=== PATIENT | female | born 1930 | race African-American/Black ===

== ENCOUNTER 2016-09-21 09:26 | Emergency (ER) | payer MEDICARE, OTHER ==
[~2016-09-21] VITALS: Ht 160 cm; Wt 55.0 kg
[2016-09-21 09:30] VITALS: BP 118/56; PULSE 90; RESP 16; TEMP 98.8; O2SAT 99
--- NOTE | 2016-09-21 09:52 | PD ---
HPI Chief Complaint: Cold / Flu Symptoms Time Seen by Provider: 09:39 Travel History International Travel<30 days: No Contact w/Intl Traveler<30days: No Traveled to known affect area: No History of Present Illness HPI 86-year-old female presents with cough and sneezing since Tuesday. She states a couple people and dietary also have similar complaints. She denies any difficulty breathing, fever or other concerns. Quality is stuffy nose. Severity is mild. PFSH Past Medical History Arthritis: No Asthma: No Autoimmune Disease: No Heart Rhythm Problems: No High Cholesterol: Yes Chest Pain: No Congestive Heart Failure: No COPD: No Cerebrovascular Accident: No Diabetes: No GERD: No Glaucoma: No Headaches: Yes Hepatitis: No Hiatal Hernia: No Hypertension: Yes Kidney Stones: No Myocardial Infarction: No Renal Failure: No Seizures: No Sleep Apnea: No Thyroid Disease: Yes (HYPOTHYROID) Ulcer: No Past Surgical History Abdominal Surgery: No AICD: No Cardiac Surgery: No Ear Surgery: No Endocrine Surgery: No Eye Surgery: No Genitourinary Surgery: No Gynecologic Surgery: Yes (BIOPSY L BREAST) Oral Surgery: No Pacemaker: No Thoracic Surgery: No Social History Alcohol Use: No Tobacco Use: No Substance Use: No Allergies-Medications (Allergen,Severity, Reaction): Coded Allergies: No Known Allergies (Verified , 09/21/16) Reported Meds & Prescriptions Reported Meds & Active Scripts Active Reported Atorvastatin (Atorvastatin Calcium) 10 Mg Tab 10 Mg PO HS Levothyroxine (Levothyroxine Sodium) 88 Mcg Tab 88 Mcg PO DAILY Lisinopril 10 Mg Tab 10 Mg PO DAILY Review of Systems Except as stated in HPI: all other systems reviewed are Neg Physical Exam Narrative General: No apparent distress, well appearing ENT: Posterior oropharyngx clear without exudate or erythema, external auditory canals are normal. Bilateral TM clear Neck: Neck is supple, no meningeal signs, trachea is midline Cardiovascular: Regular rate and rhythm Lungs: No increased respiratory effort noted, CTA bilaterally Extremities: No edema Neuro: Awake, motor and sensation grossly intact, normal speech Data Data Last Documented VS Vital Signs Date Time Temp Pulse Resp B/P Pulse Ox O2 Delivery O2 Flow Rate FiO2 09/21/16 09:30 98.8 90 16 118/56 99 Orders Influenzae A/B Antigen (09/21/16 09:40) Chest, Pa & Lat (09/21/16 ) MDM Medical Decision Making Medical Screen Exam Complete: Yes Emergency Medical Condition: Yes Medical Record Reviewed: Yes (past history confirmed) Interpretation(s) flu and cxr no acute Differential Diagnosis Pneumonia, URI, allergies Narrative Course Will check chest x-ray and influenza and reevaluate ed workup no acute, Patient denies any new complaints and states that they are feeling better. Patient happy with care, all questions answered. Patient knows that follow up is incumbent on them and to return to the emergency room immediately if new or worsening symptoms develop. Patient given strict return precautions, vitals reviewed and are normal, agrees to further workup as an outpatient. Diagnosis Primary Impression: Upper respiratory infection Qualified Code: J06.9 - Upper respiratory tract infection, unspecified type Patient Instructions: General Instructions Additional Instructions: return as needed, follow with primary this week, supportive care Med/Other Pt SpecificInfo: No Change to Meds Disposition: 01 DISCHARGE HOME Condition: Stable Kristie Cordova MD Sep 21, 2016 09:52
[2016-09-21] MEDS ORDERED: ATOR10TA15 PO (09:59)
[2016-09-21] MEDS ORDERED: LEVO88TA2 PO (09:59)
[2016-09-21] MEDS ORDERED: LISI10TA3 PO (09:59)
--- NOTE | 2016-09-21 10:25 | RADRPT ---
EXAM DATE/TIME: 09/21/2016 10:19 [facility] COMPARISON: No previous studies available for comparison. INDICATIONS : Cough, short of breath, and cold symptoms for 3 days. MEDICAL HISTORY : None. SURGICAL HISTORY : None. ENCOUNTER: Initial ACUITY: 3 days PAIN SCORE: 0/10 LOCATION: Bilateral chest FINDINGS: PA and lateral views of the chest demonstrates hyperinflation which can be seen with CO PD. No infiltrates are seen. Heart is normal in size. The mediastinal contours are unremarkable. O sseous structures are intact. CONCLUSION: Hyperinflation which can be seen with COPD. No acute cardiopulmonary disease an d no evidence for an infiltrate. Bowen Garay MD on September 21, 2016 at 10:24 Board Certified Radiologist. This report was verified electronically.
== END 2016-09-21 11:55 | disposition home or self-care (01) ==
LOC: NEPC 09:26
DX: J06.9 Acute upper respiratory infection, unspecified (principal); E78.00 Pure hypercholesterolemia, unspecified; I10 Essential (primary) hypertension
CPT/HCPCS: 71020; 87804; 99283

== ENCOUNTER 2018-03-08 13:19 | Observation (INO) ==
[2018-03-08 15:29] LABS: Baso % (Auto) 0.4 % (0.0-2.0); Eos # (Auto) 0.1 th/mm3 (0.0-0.4); Eos % (Auto) 2.3 % (0.0-4.0); Hematocrit 31.2 % (35.0-46.0); Hemoglobin 10.5 gm/dL (11.6-15.3); Lymph # (Auto) 1.6 th/mm3 (1.0-4.8); Lymph % (Auto) 26.5 % (9.0-44.0); Mean Corpuscular HGB Conc 33.6 % (32.0-36.0); Mean Corpuscular Volume 89.4 fL (80.0-100.0); Mean Platelet Volume 9.4 fL (7.0-11.0); Mono # (Auto) 0.6 th/mm3 (0.0-0.9); Neut # (Auto) 3.6 th/mm3 (1.8-7.7); Neut % (Auto) 60.8 % (16.0-70.0); Platelet Count 171 th/mm3 (150-450); Red Blood Count 3.49 mil/mm3 (4.00-5.30); Red Cell Distribution Width 13.3 % (11.6-17.2); White Blood Count 5.9 th/mm3 (4.0-11.0)
[2018-03-08 15:53] LABS: Anion Gap 6 meq/L (5-15); Blood Urea Nitrogen 25 mg/dL (7-18); Carbon Dioxide 28.6 meq/L (21.0-32.0); Chloride 104 meq/L (98-107); Glomerular Filtration Rate 37 mL/min (>89); Glucose,Random 126 mg/dL (74-106); Potassium 4.8 meq/L (3.5-5.1); Sodium 139 meq/L (136-145)
[2018-03-08] MEDS ORDERED: Sodium Chlor 0.9% Inj 500 ML IV.SIG ONE (17:25)
--- NOTE | 2018-03-08 17:42 | XR ---
EXAM DATE: 03/08/2018 5:35 PM EDT AGE/SEX: 88 years / Female INDICATIONS: Contusion. Patient fell today. CLINICAL DATA: This is the patient's initial encounter. Patient reports that signs and symptoms have been present for 1 day and indicates a pain score of 5/10. MEDICAL/SURGICAL HISTORY: None. None. COMPARISON: No prior exams available for comparison. FINDINGS: 3 views of the pelvis and right hip reveal osteoarthritis. No femoral head flattening or subchondral view of formation. No fracture or dislocation. 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 Venous calcifications overlie the pelvis. Soft tissues are otherwise unremarkable . CONCLUSION: Mild osteoarthritis. No acute abnormality. Electronically signed by: Asael Sharif MD 03/08/2018 5:41 PM EDT
--- NOTE | 2018-03-08 18:22 | ED ---
HPI General Chief Complaint: Syncope Stated Complaint: Dizziness/Poss WC Time Seen by Provider: 03/08/18 17:00 Source: patient Mode of arrival: ambulatory Limitations: no limitations History of Present Illness HPI narrative: 88-year-old female that presents to the ED for evaluation of syncope. Patient had a syncopal episode this morning while working. 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 Per patient he became really hot and she started feeling dizzy and like she was going to pass out. She did lose conscious for a couple seconds and landed on her right hip. She has been able to walk. She does have some bruising in the area. She is able to move the legs fully. Denies any urinary or bowel movement issues. No chest pain or shortness of breath before or after the event. Denies any headache. No blurry vision or double vision. Per patient now she feels fine other than some bruising to her right hip and she is able to ambulate. She denies any other medical issues and high cholesterol, high blood pressure and thyroid disease. Denies any history of heart disease or CVA on herself. Denies ever having a syncopal episode in the past. No other medical issues. No urinary or bowel movement issues. She does have a history of chronic kidney disease per patient. Related Data Home Medications Medication Instructions Recorded Confirmed atorvastatin 10 mg PO DAILY 03/08/18 03/08/18 fluticasone 1 spray INTRANASAL DAILY 03/08/18 03/08/18 levothyroxine 88 mcg PO DAILY 03/08/18 03/08/18 lisinopril-hydrochlorothiazide 1 tab PO DAILY 03/08/18 03/08/18 Allergies Allergy/AdvReac Type Severity Reaction Status Date / Time No Known Allergies Allergy Unverified 03/08/18 14:04 Review of Systems ROS: all other systems reviewed are negative [facility] Medical History Medical History Chronic kidney disease (Acute) Hyperlipemia (Acute) Hypertension (Acute) Hypothyroid (Acute) Surgical History Surgical History H/O removal of cyst (Acute) Hx of tonsillectomy (Acute) Social History Social History Substance History: No History of Abuse Second Hand Smoke Exposure: No Smoking Status: Never smoker How Often Do You Have a Drink Containing Alcohol: Never Recent Travel in [facility] within the Last 8 Weeks: No Recent Out of Country Travel within the Last 8 Weeks: No Immunization History Tetanus Immunization: Unsure Hx Influenza Vaccine This Season: Yes Exam Narrative Exam Narrative: GENERAL: Well appearing SKIN: Focused skin assessment warm/dry. HEAD: Atraumatic. Normocephalic. EYES: Pupils equal and round. No scleral icterus. No injection or drainage. ENT: No nasal bleeding or discharge. Mucous membranes pink and moist. Tongue is midline. No uvula deviation. NECK: Trachea midline. No JVD. CARDIOVASCULAR: Regular rate and rhythm. No murmur appreciated. RESPIRATORY: No accessory muscle use. Clear to auscultation. Breath sounds equal bilaterally. GASTROINTESTINAL: Abdomen soft, non-tender, nondistended. Hepatic and splenic margins not palpable. MUSCULOSKELETAL: No obvious deformities. No clubbing. No cyanosis. No edema. Full range of motion of the upper and lower extremities bilaterally. 2+ pulses bilaterally NEUROLOGICAL: Awake and alert. No obvious cranial nerve deficits. Motor grossly within normal limits. Normal speech. PSYCHIATRIC: Appropriate mood and affect; insight and judgment normal. Course Initial Documented Vital Signs Temperature 98.2 F 03/08/18 13:51 Pulse Rate 80 03/08/18 13:51 Respiratory Rate 18 03/08/18 13:51 Blood Pressure 167/69 H 03/08/18 13:51 Pulse Oximetry 99 03/08/18 13:51 Last Documented Vital Signs Temperature 98.2 F 03/08/18 13:51 Pulse Rate 80 03/08/18 13:51 Respiratory Rate 18 03/08/18 13:51 Blood Pressure 167/69 H 03/08/18 13:51 Pulse Oximetry 99 03/08/18 13:51 Medical Decision Making MDM Narrative Medical decision making narrative: 88-year-old female that presents to the ED for evaluation of syncope. Patient was properly examined and found to have signs and symptoms consistent appears to be syncope. Unclear etiology at this time. Does appear to be more benign than cardiac patient unfortunately is 88 years old and does have comorbidities that could increase her chances of more significant causes of syncope. Patient did have positive orthostatic vitals. Labs and imaging were done and were essentially unremarkable other than for what appears to be recommendation at this time is for admission for further evaluation. Case discussed with Dr Dunham who agrees to admission to his service. Differential Diagnosis Differential Diagnosis: Syncope versus dehydration versus heat stroke versus ACS Medical Records Medical records reviewed: Yes I reviewed the patient's medical records. Lab Data Lab results reviewed: Yes I reviewed the patient's lab results. Lab results narrative: Troponin and CK-MB negative. Result diagrams: 03/08/18 15:00 03/08/18 15:00 Lab Results 03/08/18 03/08/18 Range/Units 15:00 15:00 WBC 5.9 (4.0-11.0) th/mm3 RBC 3.49 L (4.00-5.30) mil/mm3 Hgb 10.5 L (11.6-15.3) gm/dL Hct 31.2 L (35.0-46.0) % MCV 89.4 (80.0-100.0) fL MCH 30.0 (27.0-34.0) pg MCHC 33.6 (32.0-36.0) % RDW 13.3 (11.6-17.2) % Plt Count 171 (150-450) th/mm3 MPV 9.4 (7.0-11.0) fL Neut % (Auto) 60.8 (16.0-70.0) % Lymph % (Auto) 26.5 (9.0-44.0) % [place] % (Auto) 10.0 H (0.0-8.0) % Eos % (Auto) 2.3 (0.0-4.0) % Baso % (Auto) 0.4 (0.0-2.0) % Neut # (Auto) 3.6 (1.8-7.7) th/mm3 Lymph # (Auto) 1.6 (1.0-4.8) th/mm3 [place] # (Auto) 0.6 (0.0-0.9) th/mm3 Eos # (Auto) 0.1 (0.0-0.4) th/mm3 Baso # (Auto) 0.0 (0.0-0.2) th/mm3 WBC Differential . Differential Comment Auto diff final Sodium 139 (136-145) meq/L Potassium 4.8 (3.5-5.1) meq/L Chloride 104 (98-107) meq/L Carbon Dioxide 28.6 (21.0-32.0) meq/L Anion Gap 6 (5-15) meq/L BUN 25 H (7-18) mg/dL Creatinine 1.59 H (0.50-1.00) mg/dL Estimated GFR 37 L (>89) mL/min Random Glucose 126 H (74-106) mg/dL Calcium 9.0 (8.5-10.1) mg/dL Troponin I Less than 0.02 L (0.02-0.05) ng/mL Imaging Data Attestation: I personally reviewed and interpreted this imaging study as follows : Radiologist's impression: Head CT 03/08/18 17:19 CONCLUSION: 1. No acute intracranial abnormality. 2. Acute on chronic appearing sinus disease partly seen. . Hip X-Ray 03/08/18 17:19 CONCLUSION: Mild osteoarthritis. No acute abnormality. ECG Data Interpretation: EKG shows sinus rhythm with no sign of acute ischemia or arrhythmia, no sign of ST elevation. Sinus rhythm. read by me and attending. Discharge Plan Physicians Team ED Provider: Yoly Herron ED Midlevel Provider: [facility] Primary Care Provider: Renato De Santiago Rxs /Orders / Referrals /Forms Prescriptions: No Action levothyroxine 88 mcg Tablet 88 mcg PO DAILY RF: 0 lisinopril-hydrochlorothiazide 10-12.5 mg Tablet 1 tab PO DAILY RF: 0 atorvastatin 10 mg PO DAILY RF: 0 fluticasone 50 mcg/actuation [place],Suspension 1 spray INTRANASAL DAILY RF: 0 Discharge Interventions Interventions: Vital Signs Last Done: 03/08/18 13:51 Status ED Status: Admitted Observation Patient
--- NOTE | 2018-03-08 18:25 | CT ---
EXAM DATE: 03/08/2018 6:03 PM EDT AGE/SEX: 88 years / Female INDICATIONS: Syncope. CLINICAL DATA: This is the patient's initial encounter. Patient reports that signs and symptoms have been present for 1 day and indicates a pain score of 0/10. MEDICAL/SURGICAL HISTORY: Renal failure, chronic. Hypertension. None. RADIATION DOSE: 44.25 CTDI (mGy) COMPARISON: No prior exams available for comparison. TECHNIQUE: CT of the head without contrast. Using automated exposure control and adjustment of the mA and/or kV according to patient size, radiation dose was kept as low as reasonably achievable to ob tain optimal diagnostic quality images. DICOM format image data is available electronically for revi ew and comparison. FINDINGS: Cerebrum: The ventricles are normal for age. No evidence of midline shift, mass lesion, hemorrhage or acute infarction. No extraaxial fluid collections are seen. Posterior Fossa: The cerebellum and brainstem are intact. The 4th ventricle is midline. The cerebe llopontine angle is unremarkable. Extracranial: Mucoperiosteal thickening and small fluid seen in the visualized ethmoid and sphenoid air cells. Skull: The calvaria is intact. No evidence of skull fracture. CONCLUSION: 1. No acute intracranial abnormality. 2. Acute on chronic appearing sinus disease partly seen. . Electronically signed by: Charles Munson MD 03/08/2018 6:23 PM EDT
[2018-03-08] MEDS ORDERED: Acetaminophen 325 MG Tablet PO PRN (18:58)
[2018-03-08] MEDS ORDERED: Temazepam 15 MG Capsule PO PRN (18:58)
--- NOTE | 2018-03-08 19:16 | P.HP ---
History of Present Illness Primary Care Physician: Renato De Santiago MD History of Present Illness: 88-year-old female with a history of hypertension and hypothyroidism presents to the ER following a syncopal episode that occurred earlier today at work. 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 She states that the production became hot she felt overwhelmed and then lost consciousness falling and landing on her right hip. She stands and pivots to show me the spot where she had her hip but denies any deep pain only pain on the skin. She denies any syncopal episodes in the past. She denies any dysuria, denies chest pain, denies cardiac flutter, denies fevers, denies visual changes. She does say that she has had an upper respiratory infection since last (6 days ) and she has been taking a Z-Elvin and fluticasone spray to clear that up. Review of Systems Constitutional: Denies chills, Denies fevers, Denies daytime sleepiness,Denies fatigue, Denies weakness, Denies headache, Denies malaise, Denies night sweats , Denies anorexia, Denies increased appetite Denies weight gain, Denies weight loss Eyes: Denies visual changes, Denies visual loss, Denies double vision, Denies blind spots, Denies blurry vision, Denies discharge, Denies dry eyes, Denies floaters, Denies irritation, Denies itchy eyes, Denies pain, Denies photophobia , Denies bulging eyes Ears, Nose, Mouth, and Throat: Denies bleeding gums, Denies change in voice, Denies difficulty swallowing, Denies abnormal hearing, Denies ear discharge, Denies ear pain, Denies tinitus, Denies vertigo, Denies facial pain, Denies hoarseness, Denies lip swelling, Denies mouth lesions, Denies nasal congestion, Denies nasal discharge, Denies nasal obstruction, Denies neck lump, Denies neck pain, Denies nose pain, Denies nosebleed, Denies post nasal drip, Denies sinus pain, Denies sinus pressure, Denies sore throat, Denies throat swelling, Denies tongue swelling Cardiovascular: Denies chest pain, Denies fainting, Denies fast heart rate, Denies foot swelling, Denies generalized swelling, Denies irregular heart rhythm , Denies leg sores, Denies leg swelling, Denies shortness of breath when lying down, Denies shortness of breath causing sudden awakening, Denies slow heart rate Respiratory: Chest congestion with cough for the last week., Denies coughing up blood, Denies excessive phlegm production, Denies pain on inspiration, Denies pain with cough, Denies shortness of breath, Denies shortness of breath with activity, Denies snoring, Denies stridor, Denies wheezing, Denies other Gastrointestinal: Denies abdominal pain, Denies bleeding, Denies stool color changes, Denies bloating, Denies change in bowel habits, Denies coffee ground vomit, Denies constipation, Denies feeling full early, Denies heartburn, Denies loose stools, Denies nausea, Denies vomiting, Denies pain with swallowing Skin/Breast: Denies bleeding lesions, Denies boil, Denies change in skin color, Denies changing lesions, Denies itching, Denies redness, Denies rash,Denies skin ulcer, Denies sores, Neurologic: Denies abnormal speech, Denies abnormal walking, Denies dizziness, Denies fainting, Denies frequent falls, Denies lack of coordination, Denies localized weakness, Denies loss of vision, Denies memory loss, Denies numbness, Denies convulsions, Denies tingling/numbness/burning sensations, Denies tremor Psychiatric: Denies anxiety, Denies behavioral changes, Denies depression, Denies memory loss, Denies hallucinations, Denies thoughts of hurting/killing others, Denies thoughts of hurting/killing self Endocrine: Denies cold intolerance, Denies excessive sweating, Denies flushing, Denies heat intolerance, Denies increased thirst, Denies weight gain or loss Hematologic/Lymphatic: Denies easy bleeding, Denies easy bruising, Denies enlarged lymph node Allergic/Immunologic: Denies GI upset with certain foods, Denies hives, Denies seasonal runny nose PMFSH - History History Provided By: Patient, Friend - Medical History Medical History: Medical History (Last Reviewed 03/08/18 @ 18:49 by ADRIAN Cabrales) Chronic kidney disease Hyperlipemia Hypertension Hypothyroid - Surgical History Surgical History: Surgical History (Last Reviewed 03/08/18 @ 18:49 by ADRIAN Cabrales) H/O removal of cyst Hx of tonsillectomy - Tobacco History Second Hand Smoke Exposure: No Smoking Status: Never smoker - Alcohol History How Often Do You Have a Drink Containing Alcohol: Never - Substance Use History Substance History: No History of Abuse - Travel History Recent Travel in the [place] Within the Last 8 Weeks: No Recent Travel Out of the Country Within the Last 8 Weeks: No - Immunization History Tetanus Immunization: Unsure Hx Influenza Vaccine This Season: Yes Medications and Allergies Active Medications: Active Medications Acetaminophen (Tylenol) 650 mg PO Q4H PRN PRN Reason: Temp > 100.4 Levothyroxine Sodium (Synthroid) 88 mcg PO DAILY RACHANA Non-Formulary Medication (Lisinopril-Hydrochlorothiazide [Lisinopril- Hydrochlorothiazide]) 1 tab PO DAILY RACHANA Ondansetron HCl (Zofran Inj) 4 mg IV.PUSH Q6H PRN PRN Reason: NAUSEA OR VOMITING Temazepam (Restoril) 15 mg PO HS PRN PRN Reason: INSOMNIA Allergies Allergy/AdvReac Type Severity Reaction Status Date / Time No Known Allergies Allergy Unverified 03/08/18 14:04 Home Medications Medication Instructions Recorded Confirmed Type atorvastatin 10 mg PO DAILY 03/08/18 03/08/18 History fluticasone 1 spray INTRANASAL DAILY 03/08/18 03/08/18 History levothyroxine 88 mcg PO DAILY 03/08/18 03/08/18 History lisinopril-hydrochlorothiazide 1 tab PO DAILY 03/08/18 03/08/18 History Exam Vital signs: Vital Signs 03/08/18 13:51 Temperature 98.2 F Pulse Rate 80 Respiratory Rate 18 Blood Pressure 167/69 H Pulse Oximetry 99 Intake & Output 03/08/18 03/08/18 03/09/18 06:59 18:59 06:59 Weight 53.524 kg Narrative: GENERAL: AAOx3, no acute distress, adequate nutrition, appears younger than stated age SKIN: Warm and dry, no rashes. HEAD: Atraumatic. Normocephalic. EYES: Pupils equal, round, reactive to light. No scleral icterus. No injection or drainage. ENT: No nasal bleeding or discharge. Moist mucous membranes. Nonerythematous oropharynx. NECK: Trachea midline. No JVD. Thyroid size within normal limits. CARDIOVASCULAR: Regular rate and rhythm. No murmur, no gallops, no rubs. RESPIRATORY: Crackles versus atelectatic changes in both bases. No wheezing. No accessory muscle use. GASTROINTESTINAL: Abdomen soft, non-tender, nondistended, normal active bowel sounds. Hepatic and splenic margins not palpable. MUSCULOSKELETAL: Extremities without clubbing or cyanosis. No obvious deformities. No edema. NEUROLOGICAL: Awake and alert. No obvious cranial nerve deficits. Motor grossly within normal limits. No focal deficits. Five out of 5 muscle strength in the arms and legs. Normal speech. PSYCHIATRIC: Appropriate mood and affect; insight and judgment normal. Results - Labs CBC & Chem 7: 03/08/18 15:00 03/08/18 15:00 Labs: Laboratory Results - last 24 hr 03/08/18 03/08/18 15:00 15:00 WBC 5.9 RBC 3.49 L Hgb 10.5 L Hct 31.2 L MCV 89.4 MCH 30.0 MCHC 33.6 RDW 13.3 Plt Count 171 MPV 9.4 Neut % (Auto) 60.8 Lymph % (Auto) 26.5 Ellis % (Auto) 10.0 H Eos % (Auto) 2.3 Baso % (Auto) 0.4 Neut # (Auto) 3.6 Lymph # (Auto) 1.6 Ellis # (Auto) 0.6 Eos # (Auto) 0.1 Baso # (Auto) 0.0 WBC Differential . Differential Comment Auto diff final Sodium 139 Potassium 4.8 Chloride 104 Carbon Dioxide 28.6 Anion Gap 6 BUN 25 H Creatinine 1.59 H Estimated GFR 37 L Random Glucose 126 H Calcium 9.0 Troponin I Less than 0.02 L - Imaging Impressions Head CT 03/08/18 17:19 CONCLUSION: 1. No acute intracranial abnormality. 2. Acute on chronic appearing sinus disease partly seen. . Hip X-Ray 03/08/18 17:19 CONCLUSION: Mild osteoarthritis. No acute abnormality. Caprini VTE Risk Assessment Caprini VTE Risk Assessment: Moderate/High Risk (score >= 2) Caprini Risk Assessment Model: Point Value = 1 Point Value = 2 Point Value = 3 Point Value = 5 Age 41-60 Minor surgery BMI > 25 kg/m2 Swollen legs Varicose veins or History of unexplained or recurrent spontaneous Oral contraceptives or hormone replacement Sepsis (< 1 month) Serious lung disease, including pneumonia (< 1 month) Abnormal pulmonary function Acute myocardial infarction Congestive heart failure (< 1 month) History of inflammatory bowel disease Medical patient at bed rest Age 61-74 Arthroscopic surgery Major open surgery (> 45 min) Laparoscopic surgery (> 45 min) Malignancy Confined to bed (> 72 hours) Immobilizing plaster cast Central venous access Age >= 75 History of VTE Family history of VTE Factor V Leiden Prothrombin [id number] Lupus anticoagulant Anticardiolipin antibodies Elevated serum homocysteine Heparin-induced thrombocytopenia Other congenital or acquired thrombophilia Stroke (< 1 month) Elective arthroplasty Hip, pelvis, or leg fracture Acute spinal cord injury (< 1 month) Prophylaxis Regimen: Total Risk Factor Score Risk Level Prophylaxis Regimen 0-1 Low Early ambulation 2 Moderate Order ONE of the following: *Sequential Compression Device (SCD) *Heparin 5000 units SQ BID 3-4 Higher Order ONE of the following medications: *Heparin 5000 units SQ TID *Enoxaparin/Lovenox 40 mg SQ daily (WT < 150 kg, CrCl > 30 mL/min) *Enoxaparin/Lovenox 30 mg SQ daily (WT < 150 kg, CrCl > 10-29 mL/min) *Enoxaparin/Lovenox 30 mg SQ BID (WT < 150 kg, CrCl > 30 mL/min) AND/OR *Sequential Compression Device (SCD) 5 or more Highest Order ONE of the following medications: *Heparin 5000 units SQ TID (Preferred with Epidurals) *Enoxaparin/Lovenox 40 mg SQ daily (WT < 150 kg, CrCl > 30 mL/min) *Enoxaparin/Lovenox 30 mg SQ daily (WT < 150 kg, CrCl > 10-29 mL/min) *Enoxaparin/Lovenox 30 mg SQ BID (WT < 150 kg, CrCl > 30 mL/min) AND *Sequential Compression Device (SCD) Assessment and Plan - Plan Syncopal episode This was her first syncopal episode ER workup thus far shows mild anemia, no leukocytosis, negative head CT Expand workup with urinalysis, chest x-ray, carotid ultrasound, echocardiogram, TSH level Patient presented with mild dehydration, rehydrated overnight and recheck BUN and creatinine levels Follow-up results, if all negative she may be transitioned to outpatient follow- up Upper respiratory infection She just finished a 5 day course of Z-Elvin and is continuing to use fluticasone nasal spray Crackles in bases on exam indicate possible pneumonia versus atelectasis Chest x-ray ordered to rule out pneumonia h/o hypertension Continue on home dose lisinoprilHCTZ Consider stopping HCTZ if workup is negative and only suspect is dehydration h/o CKD Patient has mild kidney disease, seems to be made worse by current dehydration Rehydrate and recheck BUN and creatinine levels with a.m. labs h/o hypothyroidism Continue home dose levothyroxine Check TSH with a.m. labs DVT prophylaxis SCD hose, ambulate
--- NOTE | 2018-03-08 19:41 | US ---
EXAM DATE: 03/08/2018 7:33 PM EDT AGE/SEX: 88 years / Female INDICATIONS: Syncope. CLINICAL DATA: This is the patient's initial encounter. Patient reports that signs and symptoms have been present for 1 day and indicates a pain score of 0/10. MEDICAL/SURGICAL HISTORY: Hypertension. Hypothyroidism. Chronic kidney disease. Hyperlipidemia . Tonsillectomy. Cyst removal. COMPARISON: No prior exams available for comparison. VELOCITY PARAMETERS: ICA/CCA Ratio: Right 1.1 , Left 0.9 ICA: Right 88.6 cm/sec, Left 84.9 cm/sec CCA: Right 78.7 cm/sec, Left 89.8 cm/sec ECA: Right 75.4 cm/sec, Left 77.2 cm/sec Vertebral: Right 94.6 cm/sec antegrade, Left 48.5 cm/sec antegrade FINDINGS: Right Carotid: Trace plaque at the bulb and proximal internal carotid artery.The waveforms are withi n normal limits. Left Carotid: Trace plaque of the bulb and proximal internal carotid artery. The waveforms are withi n normal limits. Other: None. CONCLUSION: 1. Right Internal Carotid Artery: No significant plaque or narrowing. 2. Left Internal Carotid Artery: No significant plaque or narrowing. Electronically signed by: Charles Munson MD 03/08/2018 7:40 PM EDT
--- NOTE | 2018-03-08 20:13 | XR ---
EXAM DATE: 03/08/2018 7:51 PM EDT AGE/SEX: 88 years / Female INDICATIONS: . Short of breath. CLINICAL DATA: This is the patient's initial encounter. Patient reports that signs and symptoms have been present for 1 day and indicates a pain score of 0/10. MEDICAL/SURGICAL HISTORY: None. None. COMPARISON: [facility] [place] & [place], 09/21/2016. . FINDINGS: AP and lateral views of the chest demonstrate the lungs to be symmetrically aerated without evidence of mass, infiltrate or effusion. The cardiomediastinal contours are unremarkable. Osseous structure s are intact. CONCLUSION: No evidence of acute cardiopulmonary disease. Electronically signed by: Charles Munson MD 03/08/2018 8:11 PM EDT
--- NOTE | 2018-03-08 22:02 | ECG ---
Date Performed: 03/08/2018 Time Performed: 16:07:09 PTAGE: 88 years EKG: Sinus rhythm MARKED LEFT AXIS DEVIATION ANTEROSEPTAL Q WAVES ABNORMAL ECG PREVIOUS TRACING : 03/08/2018 14.50 Compared to previous tracing, L axis present DOCTOR: Parth Odell Interpretating Date/Time 03/08/2018 22:02:06
--- NOTE | 2018-03-08 22:08 | ECG ---
Date Performed: 03/08/2018 Time Performed: 14:50:51 PTAGE: 88 years EKG: Sinus rhythm INCOMPLETE RIGHT BUNDLE BRANCH BLOCK NONSPECIFIC T-WAVE ABNORMALITY PREVIOUS TRACING : 06/28/2004 21.41 Compared to previous tracing, T wave changes less pr ominent DOCTOR: Parth Odell Interpretating Date/Time 03/08/2018 22:08:07
[2018-03-08] MEDS: Sod Chloride 0.9% Inj 1,000 ML IV.CONT SCH (22:48)
[2018-03-09 04:04] LABS: Bilirubin,Urine Negative (Negative); Clarity,Urine Clear (Clear); Color,Urine Straw (Yellw/Straw); Glucose,Urine (UA) Negative (Negative); Leukocyte Esterase,Urine Negative (Negative); Nitrite,Urine Negative (Negative); Specific Gravity,Urine 1.005 (1.002-1.035)
[2018-03-09] MEDS: Levothyroxine 88 MCG Tablet PO SCH (05:29)
[2018-03-09 10:02] LABS: Calcium 8.9 mg/dL (8.5-10.1); Carbon Dioxide 25.5 meq/L (21.0-32.0); Potassium 3.5 meq/L (3.5-5.1)
[2018-03-09 10:07] LABS: Thyroid Stimulating Hormone 5.59 uIU/mL (0.358-3.740)
[2018-03-09] MEDS: Lisinopril 10 MG Tablet PO SCH (11:12)
--- NOTE | 2018-03-09 13:26 | P.DCO ---
- Home Health Nursing Order: Medical education - Purchasing Director Order: To evaluate: Support services - Case Management Consult Yes - Certification I have seen patient Mile Byrd on 03/09/18. My clinical findings support the need for the requested home health care services because: elderly pt recent syncope, risk of injury. Need for psychosocial assistance, High risk of falls I certify that my clinical findings support that this patient is homebound because: Need for psychosocial assistance
--- NOTE | 2018-03-09 14:50 | P.PN ---
Subjective Interval history: no dizziness, has been out of bed ambulating without any problems. no cp, no sob. No more episodes of syncope. Denies any prior episodes. Anxious to go home. She is independent and lives alone 12 point ros completed, negative except as noted above Physical Exam Vital signs: Vital Signs 03/08/18 19:00 03/08/18 20:00 03/08/18 23:33 Temperature 99.2 F 98.9 F Pulse Rate 77 74 68 Respiratory Rate 18 16 17 Blood Pressure 157/77 H 175/74 H 133/64 Pulse Oximetry 98 99 100 03/09/18 04:00 03/09/18 07:35 03/09/18 09:11 Temperature 98.7 F 98.3 F Pulse Rate 70 74 Respiratory Rate 17 16 Blood Pressure 154/66 H 161/70 H 149/65 H Pulse Oximetry 100 98 03/09/18 09:13 03/09/18 09:14 03/09/18 09:18 Temperature Pulse Rate 63 Respiratory Rate Blood Pressure 146/62 H 148/60 H Pulse Oximetry 03/09/18 11:19 Temperature 97.5 F L Pulse Rate 79 Respiratory Rate 16 Blood Pressure 147/65 H Pulse Oximetry 100 Intake & Output 03/08/18 03/09/18 03/09/18 18:59 06:59 18:59 Intake Total 500 / 500 Balance 500 / 500 Weight 53.524 kg 53.524 kg Intake: IV 500 / 500 NS Inj 500 ML @ Wide Open IV. 500 / 500 SIG BOLUS ONE Rx#:[id number] Other: Weight On Admission 53.52 kg Narrative: GENERAL: Well-nourished, well-developed patient in no apparent distress. SKIN: Warm and dry. HEAD: Atraumatic. Normocephalic. EYES: Pupils equal and round. No scleral icterus. No injection or drainage. ENT: No nasal bleeding or discharge. Mucous membranes pink and moist. NECK: Trachea midline. No JVD. CARDIOVASCULAR: Regular rate and rhythm. RESPIRATORY: No accessory muscle use. Clear to auscultation. Breath sounds equal bilaterally. GASTROINTESTINAL: Abdomen soft, non-tender, nondistended. Hepatic and splenic margins not palpable. MUSCULOSKELETAL: Extremities without clubbing, cyanosis, or edema. No obvious deformities. NEUROLOGICAL: Awake and alert. No obvious cranial nerve deficits. Motor grossly within normal limits. Five out of 5 muscle strength in the arms and legs. Normal speech. PSYCHIATRIC: Appropriate mood and affect; insight and judgment normal. Results - Labs CBC & Chem 7: 03/08/18 15:00 03/09/18 07:50 Laboratory Results - last 24 hr 03/08/18 03/08/18 03/09/18 15:00 15:00 03:50 WBC 5.9 RBC 3.49 L Hgb 10.5 L Hct 31.2 L MCV 89.4 MCH 30.0 MCHC 33.6 RDW 13.3 Plt Count 171 MPV 9.4 Neut % (Auto) 60.8 Lymph % (Auto) 26.5 [place]ump[place] % (Auto) 10.0 H Eos % (Auto) 2.3 Baso % (Auto) 0.4 Neut # (Auto) 3.6 Lymph # (Auto) 1.6 [place]umpkin # (Auto) 0.6 Eos # (Auto) 0.1 Baso # (Auto) 0.0 WBC Differential . Differential Comment Auto diff final Sodium 139 Potassium 4.8 Chloride 104 Carbon Dioxide 28.6 Anion Gap 6 BUN 25 H Creatinine 1.59 H Estimated GFR 37 L Random Glucose 126 H Calcium 9.0 Troponin I Less than 0.02 L TSH Urine Color Straw Urine Clarity Clear Urine pH 6.0 Ur Specific Witt 1.005 Urine Protein Negative Urine Glucose (UA) Negative Urine Ketones Negative Urine Occult Blood Negative Urine Nitrate Negative Urine Bilirubin Negative Urine Urobilinogen Less than 2 Ur Leukocyte Esterase Negative Urine RBC Less than 1 Urine WBC Less than 1 Micro UA Comment Culture not ind Urine Culture Comments Culture not ind 03/09/18 03/09/18 07:50 07:50 WBC RBC Hgb Hct MCV MCH MCHC RDW Plt Count MPV Neut % (Auto) Lymph % (Auto) [place] % (Auto) Eos % (Auto) Baso % (Auto) Neut # (Auto) Lymph # (Auto) [place]kin # (Auto) Eos # (Auto) Baso # (Auto) WBC Differential Differential Comment Sodium 143 Cancelled Potassium 3.5 D Cancelled Chloride 108 H Cancelled Carbon Dioxide 25.5 Cancelled Anion Gap 10 Cancelled BUN 17 Cancelled Creatinine 1.15 H Cancelled Estimated GFR 54 L Cancelled Random Glucose 96 Cancelled Calcium 8.9 Cancelled Troponin I TSH 5.590 H Urine Color Urine Clarity Urine pH Ur Specific Witt Urine Protein Urine Glucose (UA) Urine Ketones Urine Occult Blood Urine Nitrate Urine Bilirubin Urine Urobilinogen Ur Leukocyte Esterase Urine RBC Urine WBC Micro UA Comment Urine Culture Comments - Imaging Impressions Carotid Doppler Study 03/08/18 00:00 CONCLUSION: 1. Right Internal Carotid Artery: No significant plaque or narrowing. 2. Left Internal Carotid Artery: No significant plaque or narrowing. Chest X-Ray 03/08/18 00:00 CONCLUSION: No evidence of acute cardiopulmonary disease. Head CT 03/08/18 17:19 CONCLUSION: 1. No acute intracranial abnormality. 2. Acute on chronic appearing sinus disease partly seen. . Hip X-Ray 03/08/18 17:19 CONCLUSION: Mild osteoarthritis. No acute abnormality. Assessment and Plan - Assessment (1) Syncope Code(s): R55 - Syncope and collapse Status: Acute (2) Hypertension Code(s): I10 - Essential (primary) hypertension Status: Chronic (3) Hypothyroid Code(s): E03.9 - Hypothyroidism, unspecified Status: Chronic (4) GIGI (acute kidney injury) Code(s): N17.9 - Acute kidney failure, unspecified Status: Acute - Plan Assessment and Plan 88-year-old female with a history of hypertension and hypothyroidism presented to the ER following a syncopal episode that occurred earlier today at work. [place] at kitchen [place] [employer] [place] She became hot and then lost consciousness falling and landed on her right hip. Syncopal episode, poss sec. dehydration -Carotid US no stenosis -Echo pending -Labs reviewed, TSH level 5.590, will check Free T4 and Total T 3 -orthos q shift, so far negative -continue IVF -PT eval recent Upper respiratory infection, had just finished a 5 day course of Z-Elvin and is continuing to use fluticasone nasal spray -Chest x-ray reviewed, no infiltrates. h/o hypertension -Continue on home dose lisinoprilHCTZ GIGI, poss with underlying mild kidney disease, now dehydrated. -renal function improved, continue IVF -Replace K -may need stop HCTZ h/o hypothyroidism -Continue home dose levothyroxine -will check Free T 4 and T 3 CM consult for [facility] PT eval today Poss dc today or tomorrow depending on echo and pt eval DVT prophylaxis SCD hose, ambulate Plan of care discussed with patient and RN. Further management of the patient will be dependent on hospital course
--- NOTE | 2018-03-09 15:01 | XR ---
EXAM DATE: 03/09/2018 2:58 PM EDT AGE/SEX: 88 years / Female INDICATIONS: Right shoulder pain, fell yesterday. CLINICAL DATA: This is the patient's initial encounter. Patient reports that signs and symptoms have been present for 2 days and indicates a pain score of 3/10. MEDICAL/SURGICAL HISTORY: Hypertension. chronic kidney disease, hyperlipidemia Tonsillectomy. cyst removal COMPARISON: No prior exams available for comparison. FINDINGS: No perceptible fracture or subluxation of the right shoulder. Moderate osteoarthritis seen of both th e acromioclavicular and glenohumeral joints. Radiographic appearance of the soft tissues within sneha l limits. CONCLUSION: No perceptible fracture. Moderate degenerative changes. Electronically signed by: Charles uMnson MD 03/09/2018 3:00 PM EDT
[2018-03-09] MEDS ORDERED: Potassium Chloride 25 MEQ Effervescent Tablet PO ONE (15:09)
--- NOTE | 2018-03-09 15:10 | ECHRPT ---
Indication: HYPERTENSIVE HEART DISEASE CONCLUSIONS Normal left ventricular size. Wall thickness is normal. No regional wall motion abnormalities are present. Trace mitral valve regurgitation. There is trace tricuspid valve regurgitation. The estimated pulmonary arterial pressure is 29.2 mmHg. Mild-Moderate pulmonary regurgitation. BP: / HR: Rhythm: Sinus MEASUREMENTS (Male / Female) Normal Values Technical Quality:Good 2D ECHO LV Diastolic Diameter PLAX 3.7 cm 4.2 - 5.9 / 3.9 - 5.3 cm LV Systolic Diameter PLAX 2.5 cm IVS Diastolic Thickness 1.0 cm 0.6 - 1.0 / 0.6 - 0.9 cm LVPW Diastolic Thickness 1.1 cm 0.6 - 1.0 / 0.6 - 0.9 cm LV Relative Wall Thickness 0.6 RV Internal Dim ED PLAX 2.9 cm LVOT Diameter 1.6 cm LA Systolic Diameter LX 3.0 cm 3.0 - 4.0 / 2.7 - 3.8 cm LV Ejection Fraction MOD 4C 66.0 % LV Ejection Fraction 4C AL 69.0 % M-MODE Aortic Root Diameter MM 1.5 cm LA Systolic Diameter MM 3.1 cm LA Ao Ratio MM 2.1 AV Cusp Separation MM 1.6 cm DOPPLER AV Peak Velocity 130.0 cm/s AV Peak Gradient 6.8 mmHg LVOT Peak Velocity 106.0 cm/s LVOT Peak Gradient 4.5 mmHg AV Area Cont Eq pk 1.6 cm MV Area PHT 4.7 cm Mitral E Point Velocity 66.1 cm/s Mitral A Point Velocity 103.0 cm/s Mitral E to A Ratio 0.6 LV E' Lateral Velocity 6.3 cm/s Mitral E to LV E' Lateral Ratio 10.4 LV E' Septal Velocity 4.3 cm/s Mitral E to LV E' Septal Ratio 15.4 TR Peak Velocity 219.0 cm/s TR Peak Gradient 19.2 mmHg Right Atrial Pressure 10.0 mmHg Pulmonary Artery Systolic Pressu 29.2 mmHg Right Ventricular Systolic Press 29.2 mmHg PV Peak Velocity 84.2 cm/s PV Peak Gradient 2.8 mmHg FINDINGS LEFT VENTRICLE The left ventricular systolic function is normal with an estimated ejection fraction in the range of 60-65%. Normal left ventricular size. Wall thickness is normal. No regional wall motion abnormalities are present. RIGHT VENTRICLE Normal right ventricular size and systolic function. LEFT ATRIUM The left atrial size is normal. RIGHT ATRIUM The right atrial size is normal. ATRIAL SEPTUM Normal atrial septal thickness without atrial level shunting by limited color doppler interrogation. AORTA The aortic root and proximal ascending aorta are normal in size on limited imaging. MITRAL VALVE Structurally normal mitral valve. Trace mitral valve regurgitation. AORTIC VALVE Trileaflet aortic valve. No aortic valve stenosis or regurgitation. TRICUSPID VALVE Structurally normal tricuspid valve. There is trace tricuspid valve regurgitation. The estimated pulmonary arterial pressure is 29.2 mmHg. PULMONARY VALVE Mild-Moderate pulmonary regurgitation. VESSELS The inferior vena cava is normal in size. PERICARDIUM No pericardial effusion. Girma Gardner MD (Electronically Signed) Final Date:09 March 2018 15:09
[2018-03-09 19:46] VITALS: O2SAT 100
[2018-03-09] MEDS: Sod Chloride 0.9% Inj 1,000 ML IV.CONT SCH (19:59)
[2018-03-10] MEDS: Levothyroxine 88 MCG Tablet PO SCH (05:23)
[2018-03-10 07:55] VITALS: BP 121/57; PULSE 71; RESP 16; TEMP 98.2
[2018-03-10 08:07] LABS: Calcium 8.8 mg/dL (8.5-10.1); Carbon Dioxide 25.7 meq/L (21.0-32.0); Potassium 4.4 meq/L (3.5-5.1)
[2018-03-10 08:12] LABS: Free T4 (Free Thyroxine) 1.21 ng/dL (0.76-1.46)
[2018-03-10] MEDS: Lisinopril 10 MG Tablet PO SCH (08:35)
--- NOTE | 2018-03-10 08:59 | P.DS ---
Date of admission: 03/08/18 18:58 Primary care physician: Renato De Santiago MD Anticipated date of discharge: 03/10/18 Brief History from admission: 88-year-old female with a history of hypertension and hypothyroidism presents to the ER following a syncopal episode that occurred earlier today at work. 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 She states that the production became hot she felt overwhelmed and then lost consciousness falling and landing on her right hip. She stands and pivots to show me the spot where she had her hip but denies any deep pain only pain on the skin. She denies any syncopal episodes in the past. She denies any dysuria, denies chest pain, denies cardiac flutter, denies fevers, denies visual changes. She does say that she has had an upper respiratory infection since last (6 days ) and she has been taking a Z-Elvin and fluticasone spray to clear that up. DS: Diagnosis - Discharge Diagnosis (1) Syncope Status: Acute (2) Hypertension Status: Chronic (3) GIGI (acute kidney injury) Status: Acute DS: Summary Hospital Course: Patient Update on Day of Discharge: Follow-up for syncope/fall. The patient reports feeling much better today. She denies any lightheadedness, chest pain, palpitations, shortness of breath, or abdominal complaints. She wants to go home. Hospital course: 88-year-old female with a history of hypertension and hypothyroidism presented to the ER following a syncopal episode that occurred earlier today at work. Works at kitchen at [employer] [place]. She became hot and then lost consciousness falling and landed on her right hip. Syncopal episode with fall and hip pain: Suspect secondary to dehydration as evidenced with GIGI on BMP. Head CT reviewed, no acute findings. Carotid US with no stenosis. Hip xray and shoulder xray with osteoarthritis, no acute fractures. Echocardiogram with EF 6065%. TSH mildly elevated at 5.5, however T3 and free T4 within normal limits. Orthostatic vital signs negative. Evaluated by PT, recommended outpatient physical therapy. Given supportive treatment with IV fluid hydration. No further episodes. Stable for discharge. recent Upper respiratory infection, had just finished a 5 day course of Z-Elvin and is continuing to use fluticasone nasal spray. Chest x-ray reviewed, no infiltrates. Stable. h/o hypertension. Continue on home dose lisinoprilHCTZ. BP stable. GIGI on CKD stage III: Cr 1.59 upon arrival with elevated BUN 25. Patient reports known history of CKD however suspect now with dehydration. UA negative. Given IVF hydration. Renal function improved, Cr 1.15. Stable for discharge. Hypothyroidism: Continue home dose levothyroxine. T3/4 wnl. Recommend repeat TSH and T4 as outpatient in 6 weeks. - Time Spent with Patient Total time spent providing and/or coordinating discharge services: Less than 30 minutes - Quality: VTE Deep Vein Thrombosis/Pulmonary Embolism Present on Admission: No Exam Vital signs: Vital Signs 03/09/18 09:11 03/09/18 09:13 03/09/18 09:14 Temperature Pulse Rate Respiratory Rate Blood Pressure 149/65 H 146/62 H 148/60 H Pulse Oximetry 03/09/18 09:18 03/09/18 11:19 03/09/18 15:52 Temperature 97.5 F L 97.7 F Pulse Rate 63 79 78 Respiratory Rate 16 18 Blood Pressure 147/65 H 170/76 H Pulse Oximetry 100 99 03/09/18 19:43 03/09/18 23:38 03/10/18 07:53 Temperature 97.5 F L 98.0 F 98.2 F Pulse Rate 75 68 71 Respiratory Rate 16 18 16 Blood Pressure 139/64 126/60 121/57 L Pulse Oximetry 100 100 100 Intake & Output 03/09/18 03/10/18 03/10/18 18:59 06:59 18:59 Intake Total 300 / 300 Balance 300 / 300 Intake: IV 300 / 300 NS Inj 1,000 ML @ 42 mls/hr IV. 300 / 300 CONT .[id number] [facility] Rx#:[id number] Other: Date of Last Bowel Movement 03/08/18 Narrative: GENERAL: Well-nourished, well-developed very pleasant elderly female patient in [facility]. SKIN: Warm and dry. No rash. HEENT: Normocephalic. Atraumatic. Pupils equal and round. Mucous membranes pink and moist. NECK: Supple. Trachea midline. CARDIOVASCULAR: Regular rate and rhythm. No murmur appreciated. RESPIRATORY: No accessory muscle use. Clear to auscultation. Breath sounds equal bilaterally. GASTROINTESTINAL: Abdomen soft, non-tender, nondistended. Normoactive bowel sounds x4. MUSCULOSKELETAL: No obvious deformities. Extremities without clubbing, cyanosis , or edema. NEUROLOGICAL: Awake and alert. No obvious cranial nerve deficits. Moving all extremities spontaneously. Normal speech. PSYCHIATRIC: Appropriate mood and affect; insight and judgment normal. Results Procedures completed during hospitalization: None. Labs on day of discharge: Labs from last 24 hours 03/10/18 03/10/18 03/09/18 06:25 06:25 07:50 Sodium 142 Cancelled Potassium 4.4 D Cancelled Chloride 108 H Cancelled Carbon Dioxide 25.7 Cancelled Anion Gap 8 Cancelled BUN 20 H Cancelled Creatinine 1.23 H Cancelled Estimated GFR 50 L Cancelled Random Glucose 96 Cancelled Calcium 8.8 Cancelled TSH Free T4 1.21 Total T3 Pending 03/09/18 07:50 Sodium 143 Potassium 3.5 D Chloride 108 H Carbon Dioxide 25.5 Anion Gap 10 BUN 17 Creatinine 1.15 H Estimated GFR 54 L Random Glucose 96 Calcium 8.9 TSH 5.590 H Free T4 Total T3 - Impressions ITS Impressions Carotid Doppler Study 03/08/18 00:00 CONCLUSION: 1. Right Internal Carotid Artery: No significant plaque or narrowing. 2. Left Internal Carotid Artery: No significant plaque or narrowing. Chest X-Ray 03/08/18 00:00 CONCLUSION: No evidence of acute cardiopulmonary disease. Head CT 03/08/18 17:19 CONCLUSION: 1. No acute intracranial abnormality. 2. Acute on chronic appearing sinus disease partly seen. . Hip X-Ray 03/08/18 17:19 CONCLUSION: Mild osteoarthritis. No acute abnormality. Shoulder X-Ray 03/09/18 00:00 CONCLUSION: No perceptible fracture. Moderate degenerative changes. Discharge Plan - Discharge Disposition Patient Disposition: 01 Discharge Home - Discharge Condition Condition: Stable - Discharge Order Discharge Orders: Discharge Order (Routine); Ordered 03/10/18 Ordered By: Sudha Moore - Discharge Details Anticipated Discharge Date: 03/10/18 - Physicians Team Primary Care Provider: Renato De Santiago Attending Provider: Juan Nolan Other Providers: Harish Moreira
== END 2018-03-10 10:37 | disposition home or self-care (01) ==
LOC: NEDH 13:19 → NEPFCDU 13:19 → NEPE 13:19 → NEPFCDU 20:38
PROVIDERS: ADMIT Hospitalist; ATTEND Hospitalist